=== PATIENT | male | born 1980 | race Two or more races ===

== ENCOUNTER 2025-05-06 00:54 | Emergency (ER) | payer BC, OTHER ==
[~2025-05-06] VITALS: Ht 172.7 cm; Wt 110.0 kg
[2025-05-06] MEDS ORDERED: DONNATAL 5ml ORAL Elix (BELLADONNA ALK-PHENOBARB) PO ONE (01:15)
[2025-05-06] MEDS ORDERED: LIDOCAINE VISCOUS 2% 15ML UD PO ONE (01:15)
[2025-05-06] MEDS ORDERED: MAALOX PLUS or MAALOX 30 ML PO ONE (01:15)
--- NOTE | 2025-05-06 01:19 | ED.PDOC ---
History of Present Illness HPI Comments 45 y/o morbidly obese M presents with relative for c/c epigastric abdominal pain, that radiates to his back. Patient endorses on symptoms starting after eating [employer] for dinner, immediately, 2-3x hours ago. No relief with Pepto Bismol use. No prior history of pain in the past. Denies any nausea, vomi ting, diarrhea, constipation, urinary symptoms, fever, chills, or further associated symptoms. Only significant medical history of thyroid cancer s/p thyroidectomy. Chief Complaint: Abdominal Pain Time Seen by MD: 01:00 Reviewed Notes: Nurses Notes, Medications, Allergies Allergies: Coded Allergies: NO KNOWN ALLERGIES (Unverified , 05/06/25) Information Source: Patient Mode of Arrival: Ambulatory Severity: Moderate Timing: Hours Duration: Since onset Past Medical History PAST MEDICAL HISTORY: Cancer (thyroid ) Surgical History: Thyroidectomy Social History Smoker: Non-Smoker Alcohol: Denies ETOH Use Drugs: Denies Drug Use Lives In: Home Constitutional: denies: chills, diaphoresis, fatigue, fever, malaise, sweats, weakness, others EENTM: denies: blurred vision, double vision, ear bleeding, ear discharge, ear drainage, ear pain, ear ringing, eye pain, eye redness, hearing loss, mouth pain, mouth swelling, nasal discharge, nose bleeding, nose congestion, nose pain, photophobia, tearing, throat pain, throat swelling, voice changes, others Respiratory: denies: cough, hemoptysis, orthopnea, SOB at rest, shortness of breath, SOB with excertion, stridor, wheezing, others Cardiovascular: denies: chest pain, dizzy spells, diaphoresis, Dyspnea on exertion, edema, irregular heart beat, left arm pain, lightheadedness, palpitations, PND, syncope, others Gastrointestinal: reports: abdominal pain; denies: abdomen distended, blood streaked bowels, constipated, diarrhea, dysphagia, difficulty swallowing, hematemesis, melena, nausea, poor appetite, poor fluid intake, rectal bleeding, rectal pain, vomiting, others Genitourinary: denies: burning, dysuria, flank pain, frequency, hematuria, incontinence, penile discharge, penile sore, pain, testicle pain, testicle swelling, urgency, others Neurological: denies: dizziness, fainting, headache, left sided numbness, left sided weakness, numbness, paresthesia, pre-existing deficit, right sided numbness, right sided weakness, seizure, speech problems, tingling, tremors, weakness, others Musculoskeletal: denies: back pain, gout, joint pain, joint swelling, muscle pain, muscle stiffness, neck pain, others Integumetry: denies: bruises, change in color, change in hair/nails, dryness, laceration, lesions, lumps, rash, wounds, others Allergic/Immunocompromised: denies: Difficulty Healing, Frequent Infections, Hives, Itching, others Hematologic/Lymphatic: denies: anemia, blood clots, easy bleeding, easy bruising, swollen glands, others Endocrine: denies: excessive hunger, excessive sweating, excessive thirst, excessive urination, flushing, intolerance to cold, intolerance to heat, unexplained weight gain, unexplained weight loss, others Psychiatric: denies: anxiety, bipolar disorder, depression, hopeless, panic disorder, schizophrenia, sleepless, suicidal, others All Other Systems: Reviewed and Negative (Comprehensive review of systems are negative unless otherwise stated in HPI) Physical Exam General Appearance: No Apparent Distress, Normal HEENT: Normal ENT Inspection, Pharynx Normal, TMs Normal Neck: Full Range of Motion, Non-Tender, Normal, Normal Inspection Respiratory: Chest Non-Tender, Lungs Clear, No Accessory Muscle Use, No Respiratory Distress, Normal Breath Sounds Cardiovascular: No Edema, No JVD, No Murmur, No Gallop, Normal Peripheral Pulses, Regular Rate/Rhythm Breast Exam: Deferred Gastrointestinal: Epigastric (tenderness ), No Organomegaly, No Pulsatile Mass, Normal Bowel Sounds, Soft, Tenderness (epigastric ) Genitalia: Deferred Pelvic: Deferred Rectal: Deferred Extremities: No calf tenderness, Normal capillary refill, Normal inspection, Normal range of motion, Non-tender, No pedal edema Musculoskeletal : Apperance: Normal Neurologic: Alert, mobile lab technician II-XII nml as Tested, No Motor Deficits, Normal Affect, Normal Mood, No Sensory Deficits Cerebellar Function: Normal Reflexes: Normal Skin: Dry, Normal Color, Warm Lymphatic: No Adenopathy Was a procedure done? Was a procedure done?: No Differential Dx Considerations may include: gastritis, gastroenteritis, GERD, PUD, cholelithiasis, cholecystitis, spoiled food, viral syndrome, among others X-Ray, Labs, Meds, VS Vital Signs Date Time Temp Pulse Resp B/P (MAP) Pulse Ox O2 Delivery O2 Flow Rate FiO2 05/06/25 03:49 98.1 72 17 124/86 (99) 95 98.1 05/06/25 01:08 97.8 63 18 143/96 (112) 98 97.8 X-Ray, Labs, Meds, VS Comment PATIENT REFUSED MEDICATIONS STATES HE IS FEELING UP BETTER REQUESTING DISCHARGE AT THIS TIME. LIKELY SECONDARY TO ACID REFLUX. ADVISED NOT TO EAT HEAVY MALE 1 HOUR BEFORE GOING TO BED [id number] PPI OR PEPCID PER LABELED DOSING INSTRUCTIONS. ADVISED TO TO FOLLOW UP WITH HIS PCP IN 2-3 DAYS NECESSARY. ER RETURN PRECAUTIONS GIVEN PATIENT INDICATES UNDERSTANDING AGREES WITH DISCHA RGE PLAN OF CARE. Time of 1ST Reevaluation: 01:30 Reevaluation 1ST: Unchanged Time of 2ND Reevaluation: 04:30 Reevaluation 2ND: Improved Patient Education/Counseling: Diagnosis, Treatment, Need For Follow Up Family Education/Counseling: Diagnosis, Treatment, Need For Follow Up SEPSIS Sepsis Screen Date sepsis recognized/suspect: May 06, 2025 Time Sepsis recognized/suspect: 010 Recent Procedure: No On Antibiotic Therapy: No Respiratory Rate >20: No Heart Rate >90: No Temp<36 C (96.8 F) or >38.3 C: No SBP <90 or MAP <65 mmHG: No New Acute Mental Status Change: No Is the patient on CPAP, BIPAP,: No Vital Signs Date Time Temp Pulse Resp B/P (MAP) Pulse Ox O2 Delivery O2 Flow Rate FiO2 05/06/25 03:49 98.1 72 17 124/86 (99) 95 98.1 05/06/25 01:08 97.8 63 18 143/96 (112) 98 97.8 Departure 1 Departure Time of Disposition: 04:41 Impression: Primary Impression: Acid reflux Qualified Codes: K21.9 - Gastro-esophageal reflux disease without esophagitis Disposition: HOME / SELF CARE / HOMELESS Condition: Stable Discharged With: Spouse Critical Care Note Critical Care Time?: No Stability Stability form required: No Heart Score Heart Score: Heart Score Response (Comments) Value History N/A 0 EKG N/A 0 Age N/A 0 Risk Factors N/A 0 Troponin N/A 0 Total 0 I personally scribed for ER ([email or web address]) on 05/06/25 at 01:19. Electronically submitted by Deshawn Joseph ([email or web address]). ER May 06, 2025 01:19 KENDY MORTON ELL TUTOR May 06, 2025 01:54
[2025-05-06 03:49] VITALS: BP 124/86; PULSE 72; RESP 17; TEMP 98.1; O2SAT 95
== END 2025-05-06 06:39 | disposition home or self-care (01) ==
LOC: ER 00:54
DX: K21.9 Gastro-esophageal reflux disease without esophagitis (principal); E89.0 Postprocedural hypothyroidism; Z90.89 Acquired absence of other organs; Z79.899 Other long term (current) drug therapy